=== PATIENT | male | born 1970 | race Two or more races ===

== ENCOUNTER 2024-06-06 23:09 | Emergency (ER) | payer OTHER ==
[~2024-06-06] VITALS: Ht 172.7 cm; Wt 68.0 kg
[2024-06-06 23:28] VITALS: BP 134/68; TEMP 98.1; O2SAT 98
== END 2024-06-06 23:32 | disposition home or self-care (01) ==
LOC: ER 23:11
DX: Z00.00 Encounter for general adult medical examination without abnormal findings (principal)